=== PATIENT | female | born 1950 | race Caucasian/White ===

== ENCOUNTER 2017-02-27 17:14 | Emergency (ER) | payer OTHER, MEDICARE ==
[2017-02-27 17:18] VITALS: RESP 18; O2SAT 94
--- NOTE | 2017-02-27 19:25 | EDPHY ---
H & P Time Seen by Provider: 02/27/17 18:38 HPI/ROS: CHIEF COMPLAINT: medication refill HISTORY OF PRESENT ILLNESS: 66-year-old female presents emergency department requesting pain medication. Patient fell in [place] 3 days ago while moving her father in law. She tripped over a sprinkler head while caring a box and fell onto her butt. Patient had immediate pain. She went to a Emergency Department and was told she has a L 5 compression fracture. Patient was discharged with pain medication and muscle relaxant and given an orthopedist for follow-up. Patient flew home from [place] today and is out of the medications they gave her. Patient has an appointment with her primary care doctor tomorrow at 3:00 p.m.. Patient denies loss of control of her bowel or bladder, no saddle anesthesias, no leg weakness. Patient reports her pain is controlled with the medications. Smoking Status: Former smoker Physical Exam: GEN: Awake, alert, oriented, no acute distress RESP: nl resp effort MSK: L-spine tenderness to palpation SKIN: No break in skin Constitutional: Initial Vital Signs Temperature (C) 36.7 C 02/27/17 17:14 Heart Rate 74 02/27/17 17:14 Respiratory Rate 18 02/27/17 17:14 Blood Pressure 160/76 H 02/27/17 17:14 O2 Sat (%) 94 02/27/17 17:14 O2 Delivery Mode Room Air Allergies/Adverse Reactions: amoxicillin [Amoxicillin] Allergy (Intermediate, Verified 02/27/17 17:15) Hives latex [Latex] Allergy (Intermediate, Verified 02/27/17 17:15) Hives Home Medications: Medication Instructions Recorded ALPRAZolam [Xanax] 0.25 mg PO TID PRN 10/04/11 FLUoxetine HCL [Fluoxetine Dr] 15 mg PO DAILY 10/04/11 Carisoprodol [Soma (*)] 350 mg PO 02/27/17 Hydrocodone/APAP 5/325 [[place] 1 each PO 02/27/17 5/325 (*)] Hydrocodone/APAP 5/325 [[place] 1 tab PO Q4H PRN #10 tab 02/27/17 5/325] Methocarbamol [Robaxin 750 mg (*)] 750 mg PO Q8 PRN #10 tab 02/27/17 MDM/Departure - MDM Imaging: I viewed and interpreted images myself ED Course/Re-evaluation: CT lumbar spine films loaded into packs from outside hospital. Dr. Red Singer was consulted. He is recommending a Yuridia brace and plain films. Patient will be discharged with a prescription for [place] and Robaxin. She has been fitted with a [place] brace and will follow up with Neurosurgery. - Depart Disposition: Home, Routine, Self-Care Clinical Impression: Medication refill Compression fracture of L1 lumbar vertebra Qualifiers: Encounter type: initial encounter Fracture type: closed Qualified Code(s): S32.010A - Wedge compression fracture of first lumbar vertebra, initial encounter for closed fracture Condition: Good Instructions: Medicine Refill (ED), Vertebral Compression Fracture (ED), Hydrocodone/Acetaminophen (By mouth) Additional Instructions: Take your medications as prescribed. Follow-up with your primary care doctor as scheduled tomorrow. Make an appointment with the neurosurgeon to be seen at 1st available appointment. Return to the emergency department for any fevers, loss of control of her bowel or bladder, numbness to your groin, any new symptoms or concerns. Continue taking 600 mg of ibuprofen every 8 hours with food for 3-5 days. Prescriptions: Hydrocodone/APAP 5/325 [[place] 5/325] 1 tab PO Q4H PRN #10 tab PRN Reason: Pain, Moderate Methocarbamol [Robaxin 750 mg (*)] 750 mg PO Q8 PRN #10 tab PRN Reason: Spasms Referrals: Pola Singer MD [Medical Doctor] - As per Instructions (Neurosurgeon on-call)
[2017-02-27] MEDS ORDERED: HYDROCOD/APAP 5/325 PREPACK#6 BTL TAKEHOME ONE (21:34)
[2017-02-27 22:18] VITALS: BP 148/83; PULSE 85; TEMP 97.9
== END 2017-02-27 22:17 | disposition home or self-care (01) ==
DX: Z76.0 Encounter for issue of repeat prescription (principal); Z87.891 Personal history of nicotine dependence; Z91.040 Latex allergy status

== ENCOUNTER → 2017-04-03 | Outpatient (CLI) | payer OTHER, MEDICARE | LOC: FIMAGING 12:40 | PROVIDERS: ATTEND Neurological Surgery | DX: S32.000A Wedge compression fracture of unspecified lumbar vertebra, initial encounter for closed fracture (principal); X58.XXXA Exposure to other specified factors, initial encounter ==

== ENCOUNTER → 2017-06-20 | Outpatient (CLI) | payer OTHER, MEDICARE | LOC: FIMAGING 15:44 | PROVIDERS: ATTEND Family Medicine | DX: Z12.31 Encounter for screening mammogram for malignant neoplasm of breast (principal) | CPT/HCPCS: G0202 ==

== ENCOUNTER → 2017-08-02 | Outpatient (CLI) | payer OTHER, MEDICARE | LOC: FIMAGING 13:19 | PROVIDERS: ATTEND Family Medicine | DX: Z13.820 Encounter for screening for osteoporosis (principal); M81.0 Age-related osteoporosis without current pathological fracture; S32.010A Wedge compression fracture of first lumbar vertebra, initial encounter for closed fracture ==

== ENCOUNTER → 2018-07-03 | Outpatient (CLI) | payer OTHER | LOC: FIMAGING 14:30 | PROVIDERS: ATTEND Family Medicine | DX: Z12.31 Encounter for screening mammogram for malignant neoplasm of breast (principal) ==